=== PATIENT | male | born 1965 | race Caucasian/White ===

== ENCOUNTER 2017-03-07 15:18 | Emergency (ER) | payer OTHER ==
[2017-07-31] MEDS ORDERED: COLCHICINE0.6 M1 PO (09:50)
[2017-07-31] MEDS ORDERED: VITAMIN D350000 UNIT PO (09:50)
== END 2017-03-07 17:47 | disposition home or self-care (01) ==
LOC: ER1 15:18
DX: M79.671 Pain in right foot (principal); F17.200 Nicotine dependence, unspecified, uncomplicated
CPT/HCPCS: 73630; 99283

== ENCOUNTER → 2017-05-11 | Outpatient (CLI) | payer OTHER ==
[~2017-05-11] MED LIST: COLCHICINE0.6 M1 PO; VITAMIN D350000 UNIT PO
[2017-05-11 14:59] LABS: HEMOGLOBIN 13.3 gm/dl (14.0-17.5); RED BLOOD COUNT 4.58 M/UL (4.20-5.50); WHITE BLOOD COUNT 7.4 K/UL (4.5-11.0)
[2017-05-11 15:18] LABS: BUN/CREATININE RATIO 26 (0-10)
== END ==
LOC: LAB 14:17
PROVIDERS: Family Medicine
DX: Z12.5 Encounter for screening for malignant neoplasm of prostate (principal); Z13.828 Encounter for screening for other musculoskeletal disorder; Z13.89 Encounter for screening for other disorder; Z87.19 Personal history of other diseases of the digestive system; E55.9 Vitamin D deficiency, unspecified; R53.83 Other fatigue; E78.5 Hyperlipidemia, unspecified
CPT/HCPCS: 36415; 80053; 80061; 84153; 84439; 84443; 84550; 85027; 86039; 86200; 86431

== ENCOUNTER → 2017-07-31 | Day surgery (SDC) | payer OTHER | END | disposition home or self-care (01) | LOC: OR 09:27 | PROVIDERS: Surgery | PROC: 0DBN8ZZ Excision of Sigmoid Colon, Via Natural or Artificial Opening Endoscopic (ICD-10-PCS; 2017-07-31) | PROC: 0DBM8ZZ Excision of Descending Colon, Via Natural or Artificial Opening Endoscopic (ICD-10-PCS; principal; 2017-07-31 13:00) | DX: Z12.11 Encounter for screening for malignant neoplasm of colon (principal); D12.4 Benign neoplasm of descending colon; K63.5 Polyp of colon; I10 Essential (primary) hypertension; J43.9 Emphysema, unspecified; N40.0 Benign prostatic hyperplasia without lower urinary tract symptoms; M10.9 Gout, unspecified; M06.9 Rheumatoid arthritis, unspecified; M19.90 Unspecified osteoarthritis, unspecified site; F17.210 Nicotine dependence, cigarettes, uncomplicated; Z79.899 Other long term (current) drug therapy | CPT/HCPCS: J2250; J7040; J7120 ==